=== PATIENT | female | born 1950 | race Caucasian/White ===

== ENCOUNTER 2022-07-11 18:09 | Inpatient (IN) ==
[2022-07-11] MEDS ORDERED: *HR* HYDROcodone/Acet 5/325 mg TABLET PO ONE (18:37)
[2022-07-11 22:11] LABS: Basophils # 0.1 K/mcL (0.0-0.2); Basophils % 0.4 %; Eosinophils # 0.2 K/mcL (0.0-0.6); Eosinophils % 1.2 %; Hematocrit 45.6 % (35.3-44.9); Immature Granulocytes % 0.4 % (0-4); Lymphocytes # 2.4 K/mcL (0.6-4.6); Lymphocytes % 14.5 %; Mean Corpuscular HGB Conc 30.7 g/dL (31.6-35.5); Mean Corpuscular Hemoglobin 30.2 pg (28.0-33.3); Mean Corpuscular Volume 98.3 fL (83.0-100.0); Mean Platelet Volume 9.3 fL (9.4-12.4); Monocytes # 0.9 K/mcL (0.0-1.3); Monocytes % 5.5 %; Neutrophils # 12.7 K/mcL (1.6-8.9); Platelet Count 232 K/mcL (140-400); Red Blood Count 4.64 M/mcL (3.82-4.97); Red Cell Distribution Width 14.8 % (11.5-14.5); White Blood Count 16.3 K/mcL (4.3-11.1)
[2022-07-11 23:29] LABS: Calcium 8.7 mg/dL (8.6-10.3); Potassium 3.5 mEq/L (3.5-5.1)
[2022-07-12] MEDS ORDERED: Naloxone 0.4 MG/ML INJ IVP PRN (01:51)
[2022-07-12] MEDS ORDERED: Ondansetron ODT 4 MG TAB.RAPDIS SL PRN (01:51)
[2022-07-12] MEDS ORDERED: Melatonin 3 MG TABLET PO PRN (02:00)
[2022-07-12] MEDS ORDERED: Dextrose Gel 15 GM/37.5 ML TUBE PO PRN ×2 (02:11)
[2022-07-12] MEDS ORDERED: *HR* Dextrose 50 % in Water (Syg) 50 ML SYRINGE IVP PRN (02:11)
[2022-07-12] MEDS ORDERED: D5% in Water 1,000 ML IVC PRN (02:11)
[2022-07-12] MEDS: Insulin LISPRO 300 UNITS/3 ML VIAL SUBQ SCH ×4 (07:32→21:45)
[2022-07-12] MEDS ORDERED: Acetaminophen 325 MG TABLET PO PRN (08:00)
[2022-07-12 09:35] LABS: Hematocrit 42.9 % (35.3-44.9); Mean Corpuscular HGB Conc 30.3 g/dL (31.6-35.5); Mean Corpuscular Hemoglobin 30.2 pg (28.0-33.3); Mean Corpuscular Volume 99.5 fL (83.0-100.0); Mean Platelet Volume 9.2 fL (9.4-12.4); Platelet Count 195 K/mcL (140-400); Red Blood Count 4.31 M/mcL (3.82-4.97); Red Cell Distribution Width 14.8 % (11.5-14.5); White Blood Count 11.3 K/mcL (4.3-11.1)
[2022-07-12] MEDS: *HR* OxyCODONE Immed Rel 5 MG TABLET PO PRN ×2 (09:39→15:59)
[2022-07-12 10:20] LABS: Calcium 8.6 mg/dL (8.6-10.3); Magnesium 1.3 mg/dL (1.6-2.6); Phosphorous 4.4 mg/dL (2.7-4.5); Potassium 4.1 mEq/L (3.5-5.1)
[2022-07-12] MEDS ORDERED: Nystatin POWDER 30 GM BOTTLE TP PRN (13:46)
[2022-07-12] MEDS ORDERED: Ipratropium/Albuterol Neb 3 ML IH PRN (13:47)
[2022-07-12] MEDS ORDERED: *HR* Metoprolol 5 MG/5 ML VIAL IVP PRN (13:50)
[2022-07-12] MEDS ORDERED: Iopamidol - 370 500 ML MLS IVP ONE (13:53)
[2022-07-12] MEDS ORDERED: Metoprolol XL (24 HR) Succ 25 MG TAB.ER.24H PO ONE (13:56)
[2022-07-12 14:40] LABS: VBG HCO3 31 mEq/L (21-27); VBG PCO2 52 mmHg (41-51); VBG PH 7.39 pH Units (7.32-7.42); VBG PO2 136 mmHg (25-50)
[2022-07-12 14:43] LABS: Basophils % 0.3 %; Eosinophils # 0.2 K/mcL (0.0-0.6); Eosinophils % 1.5 %; Hematocrit 43.6 % (35.3-44.9); Hemoglobin 13.2 g/dL (11.5-15.4); Immature Granulocytes % 0.5 % (0-4); Lymphocytes # 1.5 K/mcL (0.6-4.6); Lymphocytes % 10.8 %; Mean Corpuscular HGB Conc 30.3 g/dL (31.6-35.5); Mean Corpuscular Hemoglobin 30.2 pg (28.0-33.3); Mean Corpuscular Volume 99.8 fL (83.0-100.0); Mean Platelet Volume 9.4 fL (9.4-12.4); Monocytes # 0.8 K/mcL (0.0-1.3); Monocytes % 5.8 %; Neutrophils # 11.4 K/mcL (1.6-8.9); Platelet Count 198 K/mcL (140-400); Red Blood Count 4.37 M/mcL (3.82-4.97); Red Cell Distribution Width 14.9 % (11.5-14.5); Segmented Neutrophils % 81.1 %
[2022-07-12 15:25] LABS: Thyroid Stimulating Hormone 2.433 mcIU/mL (0.340-5.600)
[2022-07-12] MEDS: *HR* Heparin 5,000 UNIT/ML VIAL SQ SCH ×2 (15:58→20:13)
[2022-07-12] MEDS: *HR* HYDROcodone/Acet 5/325 mg TABLET PO PRN (17:24)
[2022-07-13 05:03] LABS: Basophils % 0.3 %; Eosinophils # 0.2 K/mcL (0.0-0.6); Eosinophils % 1.8 %; Hematocrit 47.2 % (35.3-44.9); Hemoglobin 13.9 g/dL (11.5-15.4); Immature Granulocytes % 0.4 % (0-4); Lymphocytes # 1.6 K/mcL (0.6-4.6); Lymphocytes % 17.8 %; Mean Corpuscular HGB Conc 29.4 g/dL (31.6-35.5); Mean Corpuscular Hemoglobin 30.3 pg (28.0-33.3); Mean Corpuscular Volume 103.1 fL (83.0-100.0); Mean Platelet Volume 9.2 fL (9.4-12.4); Monocytes # 0.7 K/mcL (0.0-1.3); Monocytes % 7.7 %; Neutrophils # 6.6 K/mcL (1.6-8.9); Platelet Count 183 K/mcL (140-400); Red Blood Count 4.58 M/mcL (3.82-4.97); Red Cell Distribution Width 15.1 % (11.5-14.5); White Blood Count 9.2 K/mcL (4.3-11.1)
[2022-07-13 05:22] LABS: Calcium 8.7 mg/dL (8.6-10.3); Potassium 4.1 mEq/L (3.5-5.1)
[2022-07-13] MEDS: *HR* Heparin 5,000 UNIT/ML VIAL SQ SCH (05:50)
[2022-07-13] MEDS: Insulin LISPRO 300 UNITS/3 ML VIAL SUBQ SCH ×4 (08:03→22:24)
[2022-07-13] MEDS ORDERED: Apixaban 5 MG TABLET PO SCH (11:00)
[2022-07-13] MEDS: Metoprolol XL (24 HR) Succ 25 MG TAB.ER.24H PO SCH (11:23)
[2022-07-13] MEDS: *HR* HYDROcodone/Acet 5/325 mg TABLET PO PRN ×2 (11:32→19:58)
[2022-07-13] MEDS: Apixaban 5 MG TABLET PO SCH (19:58)
[2022-07-14] MEDS: *HR* OxyCODONE Immed Rel 5 MG TABLET PO PRN ×2 (04:05→20:39)
[2022-07-14 05:19] LABS: Basophils % 0.2 %; Eosinophils # 0.2 K/mcL (0.0-0.6); Eosinophils % 2.1 %; Hematocrit 43.1 % (35.3-44.9); Hemoglobin 12.9 g/dL (11.5-15.4); Immature Granulocytes % 0.2 % (0-4); Lymphocytes # 1.6 K/mcL (0.6-4.6); Lymphocytes % 17.7 %; Mean Corpuscular HGB Conc 29.9 g/dL (31.6-35.5); Mean Corpuscular Hemoglobin 30.5 pg (28.0-33.3); Mean Corpuscular Volume 101.9 fL (83.0-100.0); Mean Platelet Volume 9.1 fL (9.4-12.4); Monocytes # 0.7 K/mcL (0.0-1.3); Monocytes % 7.9 %; Neutrophils # 6.4 K/mcL (1.6-8.9); Platelet Count 181 K/mcL (140-400); Red Blood Count 4.23 M/mcL (3.82-4.97); Red Cell Distribution Width 14.8 % (11.5-14.5); Segmented Neutrophils % 71.9 %; White Blood Count 8.9 K/mcL (4.3-11.1)
[2022-07-14 05:46] LABS: Calcium 8.8 mg/dL (8.6-10.3); Potassium 4.5 mEq/L (3.5-5.1)
[2022-07-14] MEDS: *HR* HYDROcodone/Acet 5/325 mg TABLET PO PRN (07:34)
[2022-07-14] MEDS: Apixaban 5 MG TABLET PO SCH ×2 (07:35→20:39)
[2022-07-14] MEDS: Metoprolol XL (24 HR) Succ 25 MG TAB.ER.24H PO SCH (07:35)
[2022-07-14] MEDS: Insulin LISPRO 300 UNITS/3 ML VIAL SUBQ SCH ×4 (07:36→20:38)
[2022-07-14] MEDS ORDERED: Furosemide 20 MG TABLET PO ONE (14:49)
[2022-07-14 14:52] LABS: Bacteria,Urine Few per hpf (None-Few); Bilirubin,Urine Negative (Negative); Blood,Urine Negative (Negative); Clarity,Urine Clear (Clear); Color,Urine Yellow (Yellow); Glucose,Urine (UA) Normal (Normal); Ketones,Urine Negative (Negative); Leukocyte Esterase,Urine Trace (Negative); Mucus,Urine Few per lpf (None-Few); Nitrite,Urine Negative (Negative); Protein,Urine 30 mg/dL (Neg-Trace); RBC,Urine 0-3 per hpf (0-3); Squamous Epithelial Cell,Urine Few per hpf (None-Few); Urobilinogen,Urine Normal (Normal)
[2022-07-14 15:38] LABS: Adenovirus Not Detected (Not Detect); Bordetella Pertussis Not Detected (Not Detect); Chlamydophila pneumoniae Not Detected (Not Detect); Coronavirus 229E Not Detected (Not Detect); Coronavirus HKU1 Not Detected (Not Detect); Coronavirus NL63 Not Detected (Not Detect); Coronavirus OC43 Not Detected (Not Detect); Human Metapneumovirus Not Detected (Not Detect); Human Rhinovirus/Enterovirus Not Detected (Not Detect); Influenza A Subtype 2009 H1 Not Detected (Not Detect); Influenza B Not Detected (Not Detect); Mycoplasma pneumoniae Not Detected (Not Detect); Parainfluenza Virus 1 Not Detected (Not Detect); Parainfluenza Virus 2 Not Detected (Not Detect); Parainfluenza Virus 3 Not Detected (Not Detect); Parainfluenza Virus 4 Not Detected (Not Detect); Respiratory Syncytial Virus Not Detected (Not Detect); SARS-CoV-2 Not Detected (Not Detect)
[2022-07-15] MEDS ORDERED: Furosemide 20 MG/2 ML VIAL IVP ONE ×2 (09:15→10:00)
[2022-07-15 09:40] LABS: Basophils % 0.3 %; Eosinophils # 0.2 K/mcL (0.0-0.6); Eosinophils % 1.6 %; Hematocrit 41.6 % (35.3-44.9); Hemoglobin 12.7 g/dL (11.5-15.4); Immature Granulocytes % 0.4 % (0-4); Lymphocytes # 1.3 K/mcL (0.6-4.6); Lymphocytes % 12.1 %; Mean Corpuscular HGB Conc 30.5 g/dL (31.6-35.5); Mean Corpuscular Hemoglobin 30.8 pg (28.0-33.3); Mean Platelet Volume 9.4 fL (9.4-12.4); Monocytes # 0.7 K/mcL (0.0-1.3); Monocytes % 6.3 %; Neutrophils # 8.5 K/mcL (1.6-8.9); Platelet Count 175 K/mcL (140-400); Red Blood Count 4.12 M/mcL (3.82-4.97); Red Cell Distribution Width 14.4 % (11.5-14.5); Segmented Neutrophils % 79.3 %; White Blood Count 10.7 K/mcL (4.3-11.1)
[2022-07-15 10:01] LABS: Calcium 8.7 mg/dL (8.6-10.3); Potassium 4.6 mEq/L (3.5-5.1)
[2022-07-15] MEDS: *HR* OxyCODONE Immed Rel 5 MG TABLET PO PRN (10:25)
[2022-07-15] MEDS: Apixaban 5 MG TABLET PO SCH ×2 (10:26→20:07)
[2022-07-15] MEDS: Metoprolol XL (24 HR) Succ 25 MG TAB.ER.24H PO SCH (10:26)
[2022-07-15] MEDS: Insulin LISPRO 300 UNITS/3 ML VIAL SUBQ SCH ×4 (10:28→20:08)
[2022-07-15 11:06] LABS: Estimated Average Glucose 186 mg/dl; Hemoglobin A1C 8.1 %
[2022-07-15] MEDS: *HR* HYDROcodone/Acet 5/325 mg TABLET PO PRN (19:27)
[2022-07-16 01:50] LABS: Basophils % 0.4 %; Eosinophils # 0.2 K/mcL (0.0-0.6); Eosinophils % 2.2 %; Hematocrit 38.5 % (35.3-44.9); Hemoglobin 12.1 g/dL (11.5-15.4); Immature Granulocytes % 0.3 % (0-4); Lymphocytes # 1.7 K/mcL (0.6-4.6); Lymphocytes % 18.5 %; Mean Corpuscular HGB Conc 31.4 g/dL (31.6-35.5); Mean Corpuscular Hemoglobin 31.7 pg (28.0-33.3); Mean Corpuscular Volume 100.8 fL (83.0-100.0); Mean Platelet Volume 9.4 fL (9.4-12.4); Monocytes # 0.8 K/mcL (0.0-1.3); Monocytes % 8.6 %; Neutrophils # 6.4 K/mcL (1.6-8.9); Platelet Count 174 K/mcL (140-400); Red Blood Count 3.82 M/mcL (3.82-4.97); Red Cell Distribution Width 14.4 % (11.5-14.5); White Blood Count 9.1 K/mcL (4.3-11.1)
[2022-07-16 02:10] LABS: Albumin 3.1 g/dL (3.5-5.7); Albumin/Globulin Ratio 1.1 (1.1-2.2); Bilirubin,Direct 0.1 mg/dL (0.0-0.2); Bilirubin,Indirect 0.3 mg/dL (0.0-1.0); Bilirubin,Total 0.4 mg/dL (0.3-1.0); Calcium 8.8 mg/dL (8.6-10.3); Globulin 2.8 g/dL (2.4-3.5); Magnesium 1.6 mg/dL (1.6-2.6); Potassium 4.4 mEq/L (3.5-5.1); Total Protein 5.9 g/dL (6.4-8.9)
[2022-07-16] MEDS: Apixaban 5 MG TABLET PO SCH ×2 (08:07→20:16)
[2022-07-16] MEDS: Metoprolol XL (24 HR) Succ 25 MG TAB.ER.24H PO SCH (08:07)
[2022-07-16] MEDS: Insulin LISPRO 300 UNITS/3 ML VIAL SUBQ SCH ×4 (08:09→20:20)
[2022-07-16] MEDS: Furosemide 40 MG/4 ML VIAL IVP SCH (09:23)
[2022-07-16] MEDS: *HR* HYDROcodone/Acet 5/325 mg TABLET PO PRN (14:25)
[2022-07-16] MEDS: *HR* OxyCODONE Immed Rel 5 MG TABLET PO PRN (23:00)
[2022-07-17 03:26] LABS: Basophils % 0.3 %; Eosinophils # 0.2 K/mcL (0.0-0.6); Eosinophils % 1.7 %; Hematocrit 41.5 % (35.3-44.9); Hemoglobin 12.3 g/dL (11.5-15.4); Immature Granulocytes % 0.3 % (0-4); Lymphocytes # 1.6 K/mcL (0.6-4.6); Lymphocytes % 17.3 %; Mean Corpuscular HGB Conc 29.6 g/dL (31.6-35.5); Mean Corpuscular Hemoglobin 29.6 pg (28.0-33.3); Mean Corpuscular Volume 99.8 fL (83.0-100.0); Mean Platelet Volume 9.6 fL (9.4-12.4); Monocytes # 0.7 K/mcL (0.0-1.3); Monocytes % 7.3 %; Neutrophils # 6.7 K/mcL (1.6-8.9); Platelet Count 183 K/mcL (140-400); Red Blood Count 4.16 M/mcL (3.82-4.97); Segmented Neutrophils % 73.1 %; White Blood Count 9.2 K/mcL (4.3-11.1)
[2022-07-17 03:49] LABS: Magnesium 1.3 mg/dL (1.6-2.6)
[2022-07-17] MEDS: *HR* HYDROcodone/Acet 5/325 mg TABLET PO PRN ×2 (08:05→18:55)
[2022-07-17] MEDS: Apixaban 5 MG TABLET PO SCH ×2 (08:05→19:53)
[2022-07-17] MEDS: Insulin LISPRO 300 UNITS/3 ML VIAL SUBQ SCH ×4 (08:06→20:11)
[2022-07-17] MEDS: Metoprolol XL (24 HR) Succ 25 MG TAB.ER.24H PO SCH (08:06)
[2022-07-17] MEDS: Furosemide 40 MG/4 ML VIAL IVP SCH (08:06)
[2022-07-17] MEDS: Insulin DETEMIR 100 UNIT/ML X5UNITS SUBQ SCH (14:53)
[2022-07-18] MEDS: *HR* OxyCODONE Immed Rel 5 MG TABLET PO PRN (03:11)
[2022-07-18] MEDS: Metoprolol XL (24 HR) Succ 25 MG TAB.ER.24H PO SCH (09:24)
[2022-07-18] MEDS: Insulin LISPRO 300 UNITS/3 ML VIAL SUBQ SCH ×2 (09:24→12:59)
[2022-07-18] MEDS: Insulin DETEMIR 100 UNIT/ML X5UNITS SUBQ SCH (09:24)
[2022-07-18] MEDS: Apixaban 5 MG TABLET PO SCH (09:24)
[2022-07-18 10:47] VITALS: BP 133/84; PULSE 96; TEMP 98.2; O2SAT 90
[2022-07-18] MEDS: *HR* HYDROcodone/Acet 5/325 mg TABLET PO PRN (13:00)
[2022-07-18 13:37] LABS: Influenza A PCR Negative (Negative); Influenza B PCR Negative (Negative); Resp. Syncytial Virus PCR Negative (Negative); SARS-CoV-2 by PCR (In House) Negative (Negative)
[2022-07-20] MEDS ORDERED: Apixaban 5 MG TABLET PO SCH (09:00)
== END 2022-07-18 15:07 | DRG 562 ==
LOC: 2ANU 18:09 → EMEROOARM 18:09 → SUATTDRO 07-12 02:11 → OBSVTOIN 07-12 02:11 → 2ANU 07-12 02:45 → 3NENU 07-15 18:12
PROVIDERS: ADMIT Student in an Organized Health Care Education/Training Program; ATTEND Registered Nurse